=== PATIENT | male | born 1950 | race Caucasian/White ===

== ENCOUNTER 2019-03-06 20:44 | Emergency (ER) | payer MEDICARE ==
[~2019-03-06] VITALS: Ht 177.8 cm; Wt 95.5 kg
[~2019-03-06 20:44] MED LIST: NOR5T PO; QUET300T19 PO; SIMV20TA5 PO; ZES10T PO
[2019-03-06] MEDS ORDERED: TETanus/Pertussis (Acell)/Diphther VAC/PF (Tdap-Adult) 0.5ml syringe IMVAC ONE (21:20)
[2019-03-06] MEDS ORDERED: LIDOcaine/epinephrine TOPICAL 5 ML BTL TOP ONE (21:20)
[2019-03-06] MEDS ORDERED: LIDOcaine 1% W/epiNEPHrine 1:200,000 10ml vial IJ ONE (21:30)
[2019-03-06] MEDS ORDERED: HYDROcodone/acetaminophen 10/325mg tab PO ONE (22:25)
[2019-03-06 23:01] VITALS: BP 167/100
== END 2019-03-06 23:10 | disposition home or self-care (01) ==
LOC: ER 20:44
DX: S01.01XA Laceration without foreign body of scalp, initial encounter (principal); E78.00 Pure hypercholesterolemia, unspecified; I10 Essential (primary) hypertension; K21.9 Gastro-esophageal reflux disease without esophagitis; E11.9 Type 2 diabetes mellitus without complications; F32.9 Major depressive disorder, single episode, unspecified; Z88.6 Allergy status to analgesic agent; Z79.899 Other long term (current) drug therapy; Z98.890 Other specified postprocedural states; W22.8XXA Striking against or struck by other objects, initial encounter; Y93.01 Activity, walking, marching and hiking; Y92.89 Other specified places as the place of occurrence of the external cause; Y99.8 Other external cause status
CPT/HCPCS: 12001; 70450; 90471; 90715; 99284

== ENCOUNTER 2019-04-21 16:49 | Emergency (ER) | payer MEDICARE ==
[~2019-04-21] VITALS: Ht 177.8 cm; Wt 93.2 kg
[2019-04-21 17:53] LABS: BASOPHILS % (AUTO) 0.6 % (0-1); EOSINOPHILS # (AUTO) 0.1 X10'3 (0-0.9); EOSINOPHILS % (AUTO) 0.9 % (0-6); HEMATOCRIT 44.7 % (42.0-52.0); HEMOGLOBIN 14.9 g/dl (14.0-17.9); LYMPHOCYTES # (AUTO) 0.9 X10'3 (1.1-4.8); LYMPHOCYTES % (AUTO) 11.4 % (21-51); MEAN CORPUSCULAR HGB CONC 33.2 g/dL (33.0-36.5); MEAN CORPUSCULAR VOLUME 81.1 FL (78-98); MEAN PLATELET VOLUME 7.7 FL (7.4-10.4); MONOCYTES # (AUTO) 0.4 X10'3 (0-0.9); MONOCYTES % (AUTO) 5.6 % (2-12); NEUTROPHILS # (AUTO) 6.3 X10'3 (1.8-7.7); NEUTROPHILS % (AUTO) 81.5 % (42-75); PLATELET COUNT 265 X10'3 (140-440); RED BLOOD COUNT 5.52 X10'6 (4.70-6.10); RED CELL DISTRIBUTION WIDTH 20.1 % (11.5-14.5); WHITE BLOOD COUNT 7.7 X10'3 (4.5-11.0)
[2019-04-21 17:55] LABS: ALANINE AMINOTRANSFERASE 37 U/L (12-78); ALBUMIN 3.6 G/DL (3.4-5.0); ALKALINE PHOSPHATASE 117 IU/L (46-116); ANION GAP 8 (8-16); ASPARTATE AMINO TRANSFERASE 20 U/L (10-37); BILIRUBIN,TOTAL 0.4 MG/DL (0.1-1.0); BLOOD UREA NITROGEN 26 MG/DL (7-18); CALCIUM 9.2 MG/DL (8.5-10.1); CHLORIDE 103 MMOL/L (99-107); ETHANOL < 0.010 GM/DL (0.0-0.010); GLUCOSE 276 MG/DL (70-104); POTASSIUM 3.8 MMOL/L (3.5-5.1); SODIUM 139 MMOL/L (135-145); TOTAL PROTEIN 7.3 G/DL (6.4-8.2); eGFR 74 ML/MIN
[2019-04-21 17:59] LABS: CLARITY,URINE CLEAR (Clear); COLOR,URINE YELLOW (Yellow); GLUCOSE, URINE >=1000 mg/dl (Neg); KETONES,URINE TRACE mg/dl (Neg); LEUKOCYTE ESTERASE ,URINE NEGATIVE (Neg); NITRITES, URINE NEGATIVE (Neg); OCCULT BLOOD,URINE NEGATIVE (Neg); PROTEIN,URINE NEGATIVE (Neg); UROBILINOGEN,URINE 0.2 E.U/dL (0.2-1.0)
[2019-04-21 18:00] LABS: UA COLLECTION TYPE URINAL
[2019-04-21] MEDS ORDERED: normal saline 1000ML IV soln IVB ONE (18:05)
[2019-04-21 18:06] LABS: BACTERIA,URINE NONE SEEN /HPF (Neg); RBC,URINE NONE SEEN /HPF (0-2); SQUAMOUS EPITHELIAL CELL,UR NONE SEEN /LPF (FEW); WBC,URINE 0-4 /HPF (0-4)
[2019-04-21 18:10] LABS: ELLIPTOCYTES FEW; PLATELET ESTIMATE NORMAL; POLYCHROMASIA FEW
[2019-04-21 18:12] LABS: URINE AMPHETAMINE SCREEN POSITIVE (Neg); URINE BARBITUATE SCREEN NEGATIVE (Neg); URINE BENZODIAZEPINES SCREEN NEGATIVE (Neg); URINE CANNABINOID SCREEN NEGATIVE (Neg); URINE COCAINE SCREEN NEGATIVE (Neg); URINE METHADONE SCREEN NEGATIVE (Neg); URINE OPIATE SCREEN NEGATIVE (Neg); URINE PHENCYCLIDINE SCREEN NEGATIVE (Neg)
[2019-04-21] MEDS ORDERED: polyethylene glycol 3350 17gm powd pack PO STA (18:59)
[2019-04-21] MEDS ORDERED: docusate sod 100mg capsule PO ONE (19:00)
[2019-04-21] MEDS ORDERED: DOCU100C41 PO (19:16)
[2019-04-21] MEDS ORDERED: POLY17PO10 PO (19:16)
[2019-04-21 19:32] VITALS: BP 168/97
== END 2019-04-21 19:34 | disposition home or self-care (01) ==
LOC: ER 16:50
DX: E11.65 Type 2 diabetes mellitus with hyperglycemia (principal); K59.00 Constipation, unspecified; E11.42 Type 2 diabetes mellitus with diabetic polyneuropathy; E78.00 Pure hypercholesterolemia, unspecified; I10 Essential (primary) hypertension; K21.9 Gastro-esophageal reflux disease without esophagitis; F32.9 Major depressive disorder, single episode, unspecified; Z98.890 Other specified postprocedural states; Z88.5 Allergy status to narcotic agent; Z79.899 Other long term (current) drug therapy
CPT/HCPCS: 36415; 80053; 80305; 80320; 81001; 82948; 85025; 93005; 96360; 99284; J7030

== ENCOUNTER 2020-11-16 10:56 | Emergency (ER) | payer MEDICARE ==
[~2020-11-16] VITALS: Ht 180.3 cm; Wt 95.0 kg
[~2020-11-16 10:56] MED LIST changes: +DOCU100C41 PO; -QUET300T19 PO; +QUET300T20 PO
[2020-11-16] MEDS ORDERED: normal saline 1000ml 1,000 ML IV ONE (11:50)
[2020-11-16 12:06] LABS: BASOPHILS % (AUTO) 0.4 % (0-1); EOSINOPHILS # (AUTO) 0.3 X10'3 (0-0.9); EOSINOPHILS % (AUTO) 2.9 % (0-6); HEMATOCRIT 36.7 % (42.0-52.0); HEMOGLOBIN 11.7 g/dl (14.0-17.9); LYMPHOCYTES # (AUTO) 0.6 X10'3 (1.1-4.8); LYMPHOCYTES % (AUTO) 6.2 % (21-51); MEAN CORPUSCULAR HEMOGLOBIN 25.9 PG (27.0-31.0); MEAN CORPUSCULAR HGB CONC 31.9 g/dL (33.0-36.5); MEAN PLATELET VOLUME 8.4 FL (7.4-10.4); MONOCYTES # (AUTO) 0.7 X10'3 (0-0.9); NEUTROPHILS # (AUTO) 7.9 X10'3 (1.8-7.7); NEUTROPHILS % (AUTO) 83.5 % (42-75); PLATELET COUNT 201 X10'3 (140-440); RED BLOOD COUNT 4.53 X10'6 (4.70-6.10); RED CELL DISTRIBUTION WIDTH 25.1 % (11.5-14.5); WHITE BLOOD COUNT 9.5 X10'3 (4.5-11.0)
[2020-11-16 12:14] LABS: ALANINE AMINOTRANSFERASE 24 U/L (12-78); ALBUMIN 2.9 G/DL (3.4-5.0); ALBUMIN/GLOBULIN RATIO 0.9 (1.1-1.5); ALKALINE PHOSPHATASE 112 IU/L (46-116); ANION GAP 5 (8-16); ASPARTATE AMINO TRANSFERASE 9 U/L (10-37); BILIRUBIN,TOTAL 0.2 MG/DL (0.1-1.0); BLOOD UREA NITROGEN 17 MG/DL (7-18); BUN/CREATININE RATIO 17.5 (5.4-32.0); CALCIUM 8.8 MG/DL (8.5-10.1); CHLORIDE 106 MMOL/L (99-107); CREATININE 0.97 MG/DL (0.60-1.10); GLUCOSE 232 MG/DL (70-104); POTASSIUM 4.2 MMOL/L (3.5-5.1); SODIUM 140 MMOL/L (135-145); TOTAL PROTEIN 6.3 G/DL (6.4-8.2); eGFR 76 ML/MIN
[2020-11-16 12:31] LABS: ELLIPTOCYTES 1+; PLATELET ESTIMATE NORMAL
[2020-11-16 12:32] LABS: ANISOCYTOSIS 3+; SCHISTOCYTES FEW
[2020-11-16] MEDS ORDERED: CASIRIVIMAB/IMDEVIMAB inject. 10 ML in normal saline 100ml IV soln 100 ML IV ONE (16:00)
[2020-11-16 17:02] VITALS: BP 148/86
== END 2020-11-16 19:46 | disposition home or self-care (01) ==
LOC: ER 10:56
DX: U07.1 COVID-19 (principal); R53.1 Weakness; E11.43 Type 2 diabetes mellitus with diabetic autonomic (poly)neuropathy; E78.00 Pure hypercholesterolemia, unspecified; I10 Essential (primary) hypertension; K21.9 Gastro-esophageal reflux disease without esophagitis; Z98.890 Other specified postprocedural states; Z88.6 Allergy status to analgesic agent; Z79.899 Other long term (current) drug therapy
CPT/HCPCS: 36415; 71045; 80053; 85008; 85025; 87635; 93005; 96360; 96361; 99285; C9803; J7030; M0243; Q0244

== ENCOUNTER 2021-03-14 02:04 | Emergency (ER) | payer MEDICARE ==
[~2021-03-14] VITALS: Ht 177.8 cm; Wt 97.7 kg
[2021-03-14 02:10] VITALS: BP 190/107
--- NOTE | 2021-03-14 02:22 | NUR ---
UNIQUE NOTIFIED OF PATIENTS CHIEF COMPLAINT SPOKE WITH [employer] OFFICERS WILL BE BY TO INTERVIEW PATIENT AND PROVIDE A CASE NUMBER
[2021-03-14] MEDS ORDERED: HYDR-3965 PO (05:00)
== END 2021-03-14 05:38 | disposition home or self-care (01) ==
LOC: EEVIPCON 02:05 → ER 02:05
DX: S00.83XA Contusion of other part of head, initial encounter (principal); M25.572 Pain in left ankle and joints of left foot; M54.9 Dorsalgia, unspecified; E11.43 Type 2 diabetes mellitus with diabetic autonomic (poly)neuropathy; K21.9 Gastro-esophageal reflux disease without esophagitis; E78.00 Pure hypercholesterolemia, unspecified; Z79.899 Other long term (current) drug therapy; Y08.89XA Assault by other specified means, initial encounter; Y93.89 Activity, other specified; Y92.89 Other specified places as the place of occurrence of the external cause; Y99.8 Other external cause status
CPT/HCPCS: 70450; 71045; 72125; 72128; 72131; 73564; 99284